=== PATIENT | male | born 1960 | race African-American/Black ===

== ENCOUNTER 2017-09-19 14:26 | Emergency (ER) | payer SELFPAY ==
[2017-09-19] MEDS ORDERED: Aspirin 81 MG Tab.Chew PO ONE (14:40)
[2017-09-19] MEDS ORDERED: Nitroglycerin 0.4 MG Tab.SL SL PRN (14:40)
[2017-09-19] MEDS ORDERED: Sodium Chloride 0.9% 1,000 ML IV ONE (14:41)
--- NOTE | 2017-09-19 15:06 | EDM.PDOC ---
ED HPI GENERAL MEDICAL PROBLEM - General Chief Complaint: Chest Pain Stated Complaint: CHEST PAIN/DIZZY Time Seen by Provider: 09/19/17 14:40 Source of Information: Reports: Patient History Limitations: Reports: No Limitations - History of Present Illness INITIAL COMMENTS - FREE TEXT/NARRATIVE: HISTORY AND PHYSICAL: History of present illness: Patient is a 57-year-old male who presents to the emergency room today with complaints of midsternal chest pain that started last night. He states he was resting on his couch when the midsternal chest pain started him and did not radiate anywhere. Denies any fever, chills, nausea, shortness of breath, cough, diaphoresis, abdominal pain. That that may be the pain is related to elevated blood pressure, as he does have a history of hypertension. States he took Tylenol prior to arrival. Pain is currently a 2 out of 10. Review of systems: As per history of present illness and below otherwise all systems reviewed and negative. Past medical history: As per history of present illness and as reviewed below otherwise noncontributory. Surgical history: As per history of present illness and as reviewed below otherwise noncontributory. Social history: No reported history of drug or alcohol abuse. Family history: As per history of present illness and as reviewed below otherwise noncontributory. Physical exam: Gen.: Well-developed and well-nourished 57-year-old -[place] male. Alert and oriented. Appears in no acute distress. HEENT: Atraumatic, normocephalic, pupils reactive, negative for conjunctival pallor or scleral icterus, mucous membranes moist, throat clear, neck supple, nontender, trachea midline. Lungs: Clear to auscultation, breath sounds equal bilaterally, chest nontender. Heart: S1S2, regular rate and rhythm Abdomen: Soft, nondistended, nontender. Negative for masses or hepatosplenomegaly. Negative for costovertebral tenderness. Pelvis: Stable nontender. Genitourinary: Deferred. Rectal: Deferred. Extremities: Atraumatic, negative for cords or calf pain. Neurovascular unremarkable. Neuro: Awake, alert, oriented. Cranial nerves II through XII unremarkable. Cerebellum unremarkable. Motor and sensory unremarkable throughout. Exam nonfocal. Current blood pressure is within normal range. The patient acknowledged surprisingly did share his blood pressure with him. He is agreeable to lab work and hernia workup. Patient did not receive his nitroglycerin, as he was pain-free at the time. He is remained pain-free since being here in the emergency room. CBC, CMP, troponin are normal, the exception of slightly elevated liver enzymes. EKG and x -ray are benign. Did share this information with the patient. I offered admission to rule out NE, the patient declined regardless of reviewing risks versus benefits. Patient states he would prefer to follow up with Dr. Shea as an outpatient. He should states that his chest pain returns or new symptoms develop she will return to the emergency room. Diagnostics: CBC, CMP, troponin, EKG and chest x-ray Therapeutics: Aspirin, nitroglycerin, normal saline Impression: Chest Pain Plan: 1. You declined admission today and accepted risks of going home against medical advice 2. If your symptoms should return or new symptoms develop, please return to the emergency room [facility]. 3. Please follow-up with Dr. Shea in the next 1-2 days. Return to the ED as needed and as discussed. Definitive disposition and diagnosis as appropriate pending reevaluation and review of above. Duration: Hour(s): Location: Reports: Chest left chest Pain Score (Numeric/FACES): 3 - Related Data Allergies Allergy/AdvReac Type Severity Reaction Status Date / Time No Known Allergies Allergy Verified 09/19/17 14:27 Home Meds: Home Meds . [No Known Home Meds] 09/19/17 [History] Past Medical History HEENT History: Reports: None Cardiovascular History: Reports: None Respiratory History: Reports: None Gastrointestinal History: Reports: None Genitourinary History: Reports: None Musculoskeletal History: Reports: None Neurological History: Reports: None Psychiatric History: Reports: None Endocrine/Metabolic History: Reports: None Hematologic History: Reports: None Immunologic History: Reports: None Oncologic (Cancer) History: Reports: None Dermatologic History: Reports: None - Past Surgical History Head Surgeries/Procedures: Reports: None HEENT Surgical History: Reports: None Cardiovascular Surgical History: Reports: None Respiratory Surgical History: Reports: None GI Surgical History: Reports: None Male Surgical History: Reports: None Endocrine Surgical History: Reports: None Neurological Surgical History: Reports: None Musculoskeletal Surgical History: Reports: None Oncologic Surgical History: Reports: None Dermatological Surgical History: Reports: None Social & Family History - Family History Family Medical History: Noncontributory - Tobacco Use Smoking Status *Q: Never Smoker - Caffeine Use Caffeine Use: Reports: Coffee - Recreational Drug Use Recreational Drug Use: No ED ROS GENERAL - Review of Systems Review Of Systems: ROS reveals no pertinent complaints other than HPI. ED EXAM, GENERAL - Physical Exam Exam: See Below (See dictation) Course - Vital Signs Last Recorded V/S: Last Vital Signs Temp 97.5 F 09/19/17 14:27 Pulse 87 09/19/17 15:36 Resp 16 09/19/17 15:36 BP 147/84 H 09/19/17 15:36 Pulse Ox 97 09/19/17 15:36 - Orders/Labs/Meds Orders: Active Orders 24 hr Category Date Time Status EKG Documentation Completion [RC] STAT Care 09/19/17 14:40 Active Chest 1V Frontal [CR] Stat Exams 09/19/17 14:40 Taken Nitroglycerin [Nitrostat] Med 09/19/17 14:40 Active 0.4 mg SL Q5M PRN Medication Orders Nitroglycerin (Nitrostat) 0.4 mg SL Q5M PRN PRN Reason: Chest Pain Labs: Laboratory Tests 09/19/17 09/19/17 Range/Units 14:33 14:33 WBC 4.45 (4.0-11.0) K/uL RBC 4.76 (4.50-5.90) M/uL Hgb 13.1 (13.0-17.0) g/dL Hct 39.0 (38.0-50.0) % MCV 81.9 (80.0-98.0) fL MCH 27.5 (27.0-32.0) pg MCHC 33.6 (31.0-37.0) g/dL RDW Std Deviation 39.8 (28.0-62.0) fl RDW Coeff of Jerome 13 (11.0-15.0) % Plt Count 210 (150-400) K/uL MPV 9.40 (7.40-12.00) fL Add Manual Diff YES Neutrophils % (Manual) 38 L (48.0-80.0) % Lymphocytes % (Manual) 44 H (16.0-40.0) % Monocytes % (Manual) 16 H (0.0-15.0) % Eosinophils % (Manual) 2 (0.0-7.0) % Nucleated RBC % 0.0 /100WBC Absolute Seg Neuts 1.7 (1.4-5.7) Lymphocytes # (Manual) 2.0 (0.6-2.4) Monocytes # (Manual) 0.7 (0.0-0.8) Eosinophils # (Manual) 0.1 (0.0-0.7) Nucleated RBCs # 0 K/uL Sodium 138 (136-146) mmol/L Potassium 4.0 (3.5-5.1) mmol/L Chloride 107 (98-110) mmol/L Carbon Dioxide 22 (21-31) mmol/L BUN 14 (6.0-23.0) mg/dL Creatinine 1.0 (0.6-1.5) mg/dL Est Cr Clr Drug Dosing 75.28 mL/min Estimated GFR (MDRD) > 60.0 ml/min Glucose 102 (60-110) mg/dL Calcium 8.9 (8.8-10.8) mg/dL Total Bilirubin 0.6 (0.1-1.5) mg/dL AST 70 H (5-40) IU/L ALT 74 H (8-54) IU/L Alkaline Phosphatase 74 (40-150) Troponin I < 0.10 (0.0-0.29) NG/ML Total Protein 7.8 (6.0-8.0) g/dL Albumin 4.1 (3.5-5.0) g/dL Globulin 3.7 H (2.0-3.5) g/dL Albumin/Globulin Ratio 1.1 L (1.3-2.8) Meds: Medications Generic Name Dose Route Start Last Admin Trade Name Freq PRN Reason Stop Dose Admin Nitroglycerin 0.4 mg 09/19/17 14:40 Nitrostat SL Q5M PRN Chest Pain Discontinued Medications Generic Name Dose Route Start Last Admin Trade Name Freq PRN Reason Stop Dose Admin Aspirin 324 mg 09/19/17 14:40 09/19/17 14:54 Aspirin PO 09/19/17 14:41 324 mg ONETIME ONE Administration Sodium Chloride 1,000 mls @ 999 mls/hr 09/19/17 14:41 09/19/17 14:54 Normal Saline IV 09/19/17 15:41 999 mls/hr STAT ONE Administration Departure - Departure Time of Disposition: 16:13 Disposition: Home, Self-Care 01 Clinical Impression: Chest pain in adult Forms: ED Department Discharge Additional Instructions: My general discharge The following information is given to patients seen in the emergency department who are being discharged to home. This information is to outline your options for follow-up care. We provide all patients seen in our emergency department with a follow-up referral. The need for follow-up, as well as the timing and circumstances, are variable depending upon the specifics of your emergency department visit. If you don't have a primary care physician on staff, we will provide you with a referral. We always advise you to contact your personal physician following an emergency department visit to inform them of the circumstance of the visit and for follow-up with them and/or the need for any referrals to a consulting specialist. The emergency department will also refer you to a specialist when appropriate. This referral assures that you have the opportunity for follow-up care with a specialist. All of these measure are taken in an effort to provide you with optimal care, which includes your follow-up. Under all circumstances we always encourage you to contact your private physician who remains a resource for coordinating your care. When calling for follow-up care, please make the office aware that this follow-up is from your recent emergency room visit. If for any reason you are refused follow-up, please contact the [facility] at and asked to speak to the emergency department charge nurse. [facility] [address] [place] [id number] 1. You declined admission today and accepted risks of going home against medical advice 2. If your symptoms should return or new symptoms develop, please return to the emergency room [facility]ONDA. 3. Please follow-up with Dr. Shea in the next 1-2 days. Return to the ED as needed and as discussed. - My Orders Last 24 Hours: My Active Orders 09/19/17 14:40 EKG Documentation Completion [RC] STAT Chest 1V Frontal [CR] Stat Nitroglycerin [Nitrostat] 0.4 mg SL Q5M PRN - Assessment/Plan Last 24 Hours: My Active Orders 09/19/17 14:40 EKG Documentation Completion [RC] STAT Chest 1V Frontal [CR] Stat Nitroglycerin [Nitrostat] 0.4 mg SL Q5M PRN
[2017-09-19 15:07] LABS: CHLORIDE,CL 107 mmol/L (98-110); SODIUM,NA 138 mmol/L (136-146)
--- NOTE | 2017-09-19 18:37 | CR ---
EXAM DATE: 09/19/17 PATIENT'S AGE: 57 Patient: JERZY CASEY Facility: [place], [place] Site . Site : 1960 Study: XRay Chest [id number] 3:15:34 PM Ordering Physician: Doctor Mata Final Report: HISTORY: Chest pain. FINDINGS: AP portable chest radiograph demonstrates a normal cardiac silhouette. Pulmonary vasculature is free of cephalization. No consolidation, pleural effusion or pneumothorax. Bony structures are normal. IMPRESSION: No acute cardiopulmonary disease. Dictated by Naty Ortiz MD @ 09/19/2017 3:26:10 PM Dictated by: Naty Ortiz MD @ 09/19/2017 15:26:14 (Electronic Signature) Report Signed by Proxy. [facility]
== END 2017-09-19 15:55 | disposition home or self-care (01) ==
LOC: MW.ED 14:26
DX: R07.2 Precordial pain (principal); I10 Essential (primary) hypertension
CPT/HCPCS: 36415; 71010; 80053; 84484; 85025; 93005; 99283; A9270; J7040; 99284